=== PATIENT | male | born 1960 | race Two or more races ===

== ENCOUNTER 2017-11-17 10:40 | Emergency (ER) | payer BC ==
[2017-11-17] MEDS ORDERED: DEXAMETHASONE 10 MG/ML VIAL PO STA (11:38)
[2017-11-17] MEDS ORDERED: CHERRY SYRUP 10 ML UDC PO ONE (11:40)
--- NOTE | 2017-11-17 11:43 | ED Physician Documentation ---
History of Present Illness - Stated complaint Stated Complaint: RT LEG PX - Chief complaint Chief Complaint: Ext Problem - History obtained from History obtained from: Patient, Family - History of Present Illness Timing: How many days ago (2) - Additonal information Additional information: 57-year-old male with a history of gout has developed pain in his right great toe and some pain in his ankle as well. He has not had an attack of gout for about 5 years. He has had a recent surgical decompression of the facial nerve with a craniotomy done. During that episode he did have some renal insufficiency. . Review of Systems Constitutional: denies: Fever Eyes: denies: Decreased vision Ears: denies: Ear pain Nose: denies: Congestion Throat: denies: Sore throat Respiratory: denies: Cough GI: denies: Vomiting : denies: Dysuria, Frequency Skin: denies: Rash Musculoskeletal: denies: Neck pain, Back pain, Extremity pain Neurologic: denies: Generalized weakness, Focal weakness, Numbness PD PAST MEDICAL HISTORY - Past Medical History Past Medical History: Yes Cardiovascular: Hypertension : Renal insuffiency Musculoskeletal: Gout - Past Surgical History Past Surgical History: Yes Neuro: Craniotomy - Present Medications Home Medications: Ambulatory Orders Medication Instructions Recorded Confirmed Carvedilol BID 11/17/17 HYDROcod/ACETAM 5/325 [[place] 5/325] 1 - 2 ea PO Q6H PRN #15 tablet 11/17/17 Lisinopril/Hydrochlorothiazide 11/17/17 [Lisinopril-Hctz 10-12.5 mg Tab] amLODIPine [Norvasc] 11/17/17 - Allergies Allergies/Adverse Reactions: Allergies Allergy/AdvReac Type Severity Reaction Status Date / Time No Known Drug Allergies Allergy Verified 11/17/17 10:54 - Social History Does the pt smoke?: No Smoking Status: Never smoker Does the pt drink ETOH?: No Does the pt have substance abuse?: Yes Substance Use and Type: Marijuana - Immunizations Immunizations are current?: Yes - POLST Patient has POLST: No PD ED PE NORMAL - Vitals Vital signs reviewed: Yes (hypertensive ) - General General: Alert and oriented X 3, No acute distress, Well developed/nourished - HEENT HEENT: Atraumatic, PERRL, EOMI - Respiratory Respiratory: No respiratory distress - Derm Derm: Normal color, Warm and dry, No rash - Extremities Extremities: No deformity, No edema, Other (There is tenderness to the right great toe with mild swelling and no erythema ) - Neuro Neuro: No motor deficit, No sensory deficit Eye Opening: Spontaneous Motor: Obeys Commands Verbal: Oriented GCS Score: 15 - Psych Psych: Normal mood, Normal affect Results - Vitals Vitals: Vital Signs - 24 hr 11/17/17 10:50 Temperature 36.6 C Heart Rate 66 Respiratory 16 Rate Blood Pressure 141/90 H O2 Saturation 98 Oxygen O2 Source Room air PD MEDICAL DECISION MAKING - ED course Complexity details: considered differential, d/w patient, d/w family ED course: Looks like acute gouty arthritis in the right great toe the patient is administered dexamethasone 10 mg orally and we will place him on some pain medication. I am reluctant to prescribe indomethacin as she does have a recent history of some renal insufficiency. He will be returning back to his home in 2 days. - Sepsis Event Vital Signs: Vital Signs - 24 hr 11/17/17 10:50 Temperature 36.6 C Heart Rate 66 Respiratory 16 Rate Blood Pressure 141/90 H O2 Saturation 98 Oxygen O2 Source Room air Departure - Departure Disposition: Home, Self Care Clinical Impression: Gout Qualifiers: Gout site: toe Gout etiology: unspecified cause Chronicity: acute Laterality: right Qualified Code(s): M10.9 - Gout, unspecified Condition: Stable Instructions: ED Arthritis Gout Follow-Up: Your, doctor [Other] Prescriptions: HYDROcod/ACETAM 5/325 [[place] 5/325] 1 - 2 ea PO Q6H PRN #15 tablet PRN Reason: Pain
[2017-11-17 11:54] VITALS: BP 147/87
== END 2017-11-17 11:52 | disposition home or self-care (01) ==
LOC: ED 10:40
DX: M10.9 Gout, unspecified (principal); I10 Essential (primary) hypertension
CPT/HCPCS: 99283; A9270